=== PATIENT | male | born 1995 | race Hispanic/Latino ===

== ENCOUNTER 2017-09-28 20:29 | Inpatient (IN) | payer BC, MEDICAID, OTHER ==
[~2017-09-28] VITALS: Ht 162.6 cm; Wt 57.6 kg
[2017-09-28 21:19] LABS: ABG HCO3 46.8 mmol/L (21.0-28.0); ABG OXYGEN SATURATION 55.7 % (95.0-99.0); ABG PCO2 97 mmHg (35-48)
[2017-09-28 21:19] LABS: EOSINOPHILS % (AUTO) 0.1 % (0.0-8.0); HEMATOCRIT 45.8 % (42-54); LYMPHOCYTES % (AUTO) 2.1 % (21.0-51.0); MEAN CORPUSCULAR HGB CONC 31.8 g/dL (32.0-36.0); MEAN CORPUSCULAR VOLUME 88.3 fL (80-100); MONOCYTES % (AUTO) 3.4 % (3.0-13.0); NEUTROPHILS % (AUTO) 93.4 % (40.0-77.0); PLATELET COUNT (AUTO) 362 K/uL (130-400); RED BLOOD CELL COUNT(AUTO) 5.18 MIL/uL (4.50-6.20); RED CELL DISTRIBUTION WIDTH 13.9 % (11.0-15.5); WHITE BLOOD COUNT (AUTO) 21.5 K/uL (4.8-10.8)
[2017-09-28] MEDS ORDERED: IPRATROPIUM/ALBUTEROL SULFATE 3 ML SOLUTION IH ONE (21:24)
[2017-09-28 21:43] LABS: CREATINE KINASE MB < 0.5 ng/mL (0.5-3.6); CREATINE KINASE, TOTAL 60 U/L (21-232)
[2017-09-28 21:47] LABS: CREATININE 0.7 mg/dL (0.5-1.5); POTASSIUM 4.3 mmol/L (3.5-5.1)
[2017-09-28 21:48] LABS: ABG BASE EXCESS 13.9 mmol/L (-2.0-3.0); ABG HCO3 46.6 mmol/L (21.0-28.0); ABG PCO2 107 mmHg (35-48)
[2017-09-28] MEDS ORDERED: NITROGLYCERIN 1GM/1 INCH PACKET TD ONE (21:51)
[2017-09-28] MEDS ORDERED: ASPIRIN 325 MG TABLET ONE (21:51)
[2017-09-28 21:52] LABS: ALBUMIN 3.3 g/dL (3.5-5.0); BILIRUBIN,TOTAL 0.4 mg/dL (0.2-1.0); TOTAL PROTEIN, SERUM 8.7 g/dL (6.0-8.3)
[2017-09-28] MEDS ORDERED: ACETAMINOPHEN 325 MG TAB PO PRN (23:15)
[2017-09-28] MEDS ORDERED: NITROGLYCERIN 0.4 MG SL TAB SL PRN (23:15)
[2017-09-28] MEDS ORDERED: ZOSYN 3.375GM+NS 50ML 50 ML IV SCH (23:15)
[2017-09-28] MEDS ORDERED: ONDANSETRON HCL 4 MG/2 ML VIAL IV PRN (23:15)
[2017-09-28] MEDS ORDERED: METOPROLOL TARTRATE 1 MG/ML 5ML VIAL IV PRN (23:15)
[2017-09-28 23:33] LABS: APPEARANCE,URINE Clear (CLEAR); BILIRUBIN,URINE Negative (NEGATIVE); COLOR,URINE Yellow (YELLOW); GLUCOSE, URINE (UA) Negative (NEGATIVE); KETONES,URINE Negative (NEGATIVE); LEUKOCYTE ESTERASE ,URINE Negative (NEGATIVE); NITRATE,URINE Negative (NEGATIVE); OCCULT BLOOD,URINE Nonhemolyzed Trace (NEGATIVE); PROTEIN,URINE >=1000 (NEGATIVE)
[2017-09-28 23:41] LABS: AMPHET/METH SCREEN,URINE NEGATIVE (NEGATIVE); BARBITURATE SCREEN, URINE NEGATIVE (NEGATIVE); BENZODIAZEPINES SCREEN,URINE NEGATIVE (NEGATIVE); CANNABINOID SCREEN,URINE NEGATIVE (NEGATIVE); COCAINE SCREEN,URINE NEGATIVE (NEGATIVE); OPIATE SCREEN,URINE NEGATIVE (NEGATIVE); PHENCYCLIDINE SCREEN,URINE NEGATIVE (NEGATIVE)
[2017-09-29] LABS: BACTERIA,URINE None Seen /HPF (None Seen); MUCUS,URINE Moderate LPF (None Seen); RBC,URINE 0-1 /HPF (0-1); SQUAMOUS EPITHELIAL CELL,UR Moderate /LPF (0-2); WBC,URINE 0-1 /HPF (0-1); YEAST,URINE BUDDING Rare /HPF (None Seen)
[2017-09-29] MEDS ORDERED: METOPROLOL TARTRATE 1 MG/ML 5ML VIAL IV ONE (00:13)
[2017-09-29 01:23] LABS: ABG BASE EXCESS 14.2 mmol/L (-2.0-3.0); ABG HCO3 41.1 mmol/L (21.0-28.0); ABG OXYGEN SATURATION 89.7 % (95.0-99.0); ABG PCO2 60 mmHg (35-48)
[2017-09-29] MEDS ORDERED: MEROPENEM 1 GM VIAL ONE ×2 (01:50→09:13)
[2017-09-29] MEDS ORDERED: ACETAMINOPHEN 325 MG TAB ONE (03:33)
[2017-09-29 03:48] LABS: HEMATOCRIT 39.3 % (42-54); MEAN CORPUSCULAR HEMOGLOBIN 28.1 pg (27.0-33.0); PLATELET COUNT (AUTO) 321 K/uL (130-400); RED BLOOD CELL COUNT(AUTO) 4.46 MIL/uL (4.50-6.20); RED CELL DISTRIBUTION WIDTH 14.1 % (11.0-15.5); WHITE BLOOD COUNT (AUTO) 21.3 K/uL (4.8-10.8)
[2017-09-29 03:57] LABS: CARBON DIOXIDE 42 mmol/L (21-32); CHLORIDE 99 mmol/L (101-111); CREATININE 0.7 mg/dL (0.5-1.5); GLOMERULAR FILTR. RATE CALC 153 mL/min (>60); GLUCOSE,RANDOM 122 mg/dL (70-105); POTASSIUM 3.9 mmol/L (3.5-5.1); SODIUM SERUM 140 mmol/L (136-145); UREA NITROGEN, BLOOD 19 mg/dL (7-18)
[2017-09-29 04:11] LABS: CHOLESTEROL 83 mg/dL (<200); CREATINE KINASE MB < 0.5 ng/mL (0.5-3.6); CREATINE KINASE, TOTAL 15 U/L (21-232); HDL CHOLESTEROL 53 mg/dL (29-71); LDL DIRECT 28 mg/dL (0-99); MYOGLOBIN 19 ng/mL (10-92); TRIGLYCERIDES 31 mg/dL (30-200); TROPONIN I 0.13 ng/mL (0.00-0.06)
[2017-09-29] MEDS: ASPIRIN 81MG TAB.CHEW PO SCH (09:00)
[2017-09-29] MEDS: FAMOTIDINE/PF 20 MG/2 ML VIAL IV SCH ×2 (09:00→20:18)
[2017-09-29] MEDS: SODIUM CHLORIDE 0.9% 1000ML 1,000 ML IV SCH ×2 (09:13→18:22)
[2017-09-29] MEDS ORDERED: ASPIRIN 81MG TAB.CHEW ONE (09:13)
[2017-09-29] MEDS ORDERED: FAMOTIDINE/PF 20 MG/2 ML VIAL IV ONE (09:14)
[2017-09-29 11:16] LABS: CREATINE KINASE MB 0.5 ng/mL (0.5-3.6); TROPONIN I 0.13 ng/mL (0.00-0.06)
[2017-09-29 11:50] VITALS: BP 156/94
[2017-09-29 16:09] VITALS: BP 131/79
[2017-09-29] MEDS: FLU VACC QS2017-18 36MOS UP/PF 60 MCG/0.5 ML ML IM SCH (16:45)
[2017-09-29] MEDS: MEROPENEM 1 GM VIAL IVP SCH (18:22)
[2017-09-29 19:35] VITALS: BP 91/41
[2017-09-29 23:49] VITALS: BP 147/98
[2017-09-30] MEDS: MEROPENEM 1 GM VIAL IVP SCH ×3 (01:59→17:27)
[2017-09-30 03:56] VITALS: BP 116/70
[2017-09-30] MEDS: SODIUM CHLORIDE 0.9% 1000ML 1,000 ML IV SCH ×2 (04:48→15:46)
[2017-09-30 07:00] VITALS: BP 152/94
[2017-09-30] MEDS: ASPIRIN 81MG TAB.CHEW PO SCH (08:37)
[2017-09-30] MEDS: FAMOTIDINE/PF 20 MG/2 ML VIAL IV SCH ×2 (08:37→21:02)
[2017-09-30] MEDS: HYDRALAZINE HCL 20 MG/ML VIAL IV PRN (10:35)
[2017-09-30 11:00] VITALS: BP 141/85
[2017-09-30 16:00] VITALS: BP 150/96
[2017-09-30 20:29] VITALS: BP 91/54
[2017-10-01] VITALS (8 sets, daily range): BP systolic 104–198; BP diastolic 39–119
[2017-10-01] MEDS: SODIUM CHLORIDE 0.9% 1000ML 1,000 ML IV SCH ×4 (01:16→23:37)
[2017-10-01] MEDS: MEROPENEM 1 GM VIAL IVP SCH ×3 (01:17→17:52)
[2017-10-01] MEDS: ASPIRIN 81MG TAB.CHEW PO SCH (08:35)
[2017-10-01] MEDS ORDERED: FAMOTIDINE 20MG TAB 20 MG TAB PO SCH (09:00)
[2017-10-01 16:18] LABS: HEMATOCRIT 41.3 % (42-54); MEAN CORPUSCULAR HEMOGLOBIN 28.4 pg (27.0-33.0); MEAN CORPUSCULAR HGB CONC 32.9 g/dL (32.0-36.0); MEAN CORPUSCULAR VOLUME 86.2 fL (80-100); PLATELET COUNT (AUTO) 370 K/uL (130-400); RED BLOOD CELL COUNT(AUTO) 4.79 MIL/uL (4.50-6.20); RED CELL DISTRIBUTION WIDTH 13.9 % (11.0-15.5); WHITE BLOOD COUNT (AUTO) 15.4 K/uL (4.8-10.8)
[2017-10-01 17:01] LABS: BAND NEUTROPHILS % (MANUAL) 9 % (0-2); EOSINOPHILS % (MANUAL) 3 % (1-6); LYMPHOCYTES % (MANUAL) 13 % (22-44); MAN.DIFF COMMENT-IMPRESSION MANUAL DIFFERENTIAL; REACTIVE LYMPHOCYTES 1 % (0-0); SEGMENTED NEUTROPHILS % 74 % (40-70)
[2017-10-01 17:04] LABS: PLATELET MORPHOLOGY COMMENT LARGE PLTS PRESENT
[2017-10-01] MEDS: HYDRALAZINE HCL 20 MG/ML VIAL IV PRN (19:53)
[2017-10-01] MEDS: FAMOTIDINE/PF 20 MG/2 ML VIAL IV SCH (19:54)
[2017-10-02] VITALS (7 sets, daily range): BP systolic 90–177; BP diastolic 45–108
[2017-10-02] MEDS: MEROPENEM 1 GM VIAL IVP SCH ×3 (01:52→18:24)
[2017-10-02] MEDS: HYDRALAZINE HCL 20 MG/ML VIAL IV PRN (03:16)
[2017-10-02] MEDS: ASPIRIN 81MG TAB.CHEW PO SCH (09:00)
[2017-10-02] MEDS: ENOXAPARIN SODIUM 40 MG/0.4 ML SYRINGE SQ SCH (09:21)
[2017-10-02] MEDS: FAMOTIDINE/PF 20 MG/2 ML VIAL IV SCH ×2 (09:49→21:05)
[2017-10-02] MEDS: SODIUM CHLORIDE 0.9% 1000ML 1,000 ML IV SCH ×2 (10:02→21:06)
[2017-10-03] MEDS: HYDRALAZINE HCL 20 MG/ML VIAL IV PRN (00:36)
[2017-10-03] MEDS: MEROPENEM 1 GM VIAL IVP SCH ×3 (01:56→16:57)
[2017-10-03 03:48] VITALS: BP 137/83
[2017-10-03 04:03] LABS: HEMATOCRIT 41.2 % (42-54); MEAN CORPUSCULAR HEMOGLOBIN 28.5 pg (27.0-33.0); MEAN CORPUSCULAR VOLUME 86.3 fL (80-100); PLATELET COUNT (AUTO) 384 K/uL (130-400); RED BLOOD CELL COUNT(AUTO) 4.77 MIL/uL (4.50-6.20); RED CELL DISTRIBUTION WIDTH 14.2 % (11.0-15.5); WHITE BLOOD COUNT (AUTO) 18.5 K/uL (4.8-10.8)
[2017-10-03 04:11] LABS: ALBUMIN 2.9 g/dL (3.5-5.0); BILIRUBIN,TOTAL 0.4 mg/dL (0.2-1.0); CREATININE 0.6 mg/dL (0.5-1.5); POTASSIUM 3.5 mmol/L (3.5-5.1); TOTAL PROTEIN, SERUM 8.1 g/dL (6.0-8.3)
[2017-10-03 07:23] VITALS: BP_SYST 158; BP_DIAS 110; BP_DIAS 98
[2017-10-03] MEDS: ASPIRIN 81MG TAB.CHEW PO SCH (09:20)
[2017-10-03] MEDS: FAMOTIDINE/PF 20 MG/2 ML VIAL IV SCH ×2 (09:20→20:47)
[2017-10-03] MEDS: ENOXAPARIN SODIUM 40 MG/0.4 ML SYRINGE SQ SCH (09:21)
[2017-10-03 11:20] VITALS: BP 148/80
[2017-10-03] MEDS: SODIUM CHLORIDE 0.9% 1000ML 1,000 ML IV SCH ×2 (13:13→23:59)
[2017-10-03 16:15] VITALS: BP 152/98
[2017-10-03] MEDS ORDERED: LIDOCAINE HCL-MPF 1% 2ML VIAL IVP PRN (16:30)
[2017-10-03] MEDS ORDERED: POTASSIUM CHLORIDE 20 MEQ ERTAB PO PRN (16:30)
[2017-10-03] MEDS ORDERED: POTASSIUM CHLORIDE 20MEQ/100ML 100 ML IV PRN (16:30)
[2017-10-03] MEDS: POTASSIUM CHLORIDE 10% ELIXIR 20 MEQ/15 ML UDCUP PO PRN ×2 (16:54→18:44)
[2017-10-03 19:28] VITALS: BP 169/97
[2017-10-03 23:15] VITALS: BP 108/61
[2017-10-04] MEDS: MEROPENEM 1 GM VIAL IVP SCH ×3 (02:05→21:06)
[2017-10-04] MEDS: IPRATROPIUM/ALBUTEROL SULFATE 3 ML SOLUTION IH SCH ×6 (02:43→22:05)
[2017-10-04 04:02] VITALS: BP 111/72
[2017-10-04 08:00] VITALS: BP 148/85
[2017-10-04] MEDS: ASPIRIN 81MG TAB.CHEW PO SCH (10:09)
[2017-10-04] MEDS: FAMOTIDINE/PF 20 MG/2 ML VIAL IV SCH ×2 (10:09→21:04)
[2017-10-04] MEDS: SODIUM CHLORIDE 0.9% 1000ML 1,000 ML IV SCH ×2 (10:12→19:18)
[2017-10-04 11:09] VITALS: BP 157/90
[2017-10-04 12:24] LABS: ABG BASE EXCESS 6.5 mmol/L (-2.0-3.0); ABG HCO3 33.1 mmol/L (21.0-28.0); ABG OXYGEN SATURATION 98.3 % (95.0-99.0); ABG PCO2 55 mmHg (35-48)
[2017-10-04] MEDS ORDERED: MEROPENEM 1GM IVPB PREMIXED 1 GM IV SCH (14:00)
[2017-10-04 16:10] VITALS: BP 158/102
[2017-10-04] MEDS: FLU VACC QS2017-18 36MOS UP/PF 60 MCG/0.5 ML ML IM SCH (16:24)
[2017-10-04] MEDS: ENOXAPARIN SODIUM 40 MG/0.4 ML SYRINGE SQ SCH (16:24)
[2017-10-04 19:35] VITALS: BP 136/81
[2017-10-04 23:53] VITALS: BP 94/44
[2017-10-05] VITALS (25 sets, daily range): BP systolic 72–189; BP diastolic 37–119
[2017-10-05] MEDS: IPRATROPIUM/ALBUTEROL SULFATE 3 ML SOLUTION IH SCH ×6 (02:13→22:10)
[2017-10-05] MEDS: ENOXAPARIN SODIUM 40 MG/0.4 ML SYRINGE SQ SCH (02:32)
[2017-10-05] MEDS: ASPIRIN 81MG TAB.CHEW PO SCH (02:35)
[2017-10-05 03:55] LABS: HEMATOCRIT 40.6 % (42-54); MEAN CORPUSCULAR HEMOGLOBIN 28.4 pg (27.0-33.0); MEAN CORPUSCULAR HGB CONC 32.9 g/dL (32.0-36.0); MEAN CORPUSCULAR VOLUME 86.4 fL (80-100); PLATELET COUNT (AUTO) 325 K/uL (130-400); RED CELL DISTRIBUTION WIDTH 14.2 % (11.0-15.5); WHITE BLOOD COUNT (AUTO) 13.8 K/uL (4.8-10.8)
[2017-10-05 04:14] LABS: ALBUMIN 2.9 g/dL (3.5-5.0); BILIRUBIN,TOTAL 0.5 mg/dL (0.2-1.0); CREATININE 0.8 mg/dL (0.5-1.5); POTASSIUM 4.1 mmol/L (3.5-5.1); TOTAL PROTEIN, SERUM 7.8 g/dL (6.0-8.3)
[2017-10-05] MEDS: MEROPENEM 1 GM VIAL IVP SCH (05:21)
[2017-10-05] MEDS: SODIUM CHLORIDE 0.9% 1000ML 1,000 ML IV SCH (05:22)
[2017-10-05] MEDS: FAMOTIDINE 20MG TAB 20 MG TAB PO SCH ×2 (09:00→20:41)
[2017-10-05] MEDS ORDERED: LEVOFLOXACIN 500 MG TABLET PO SCH (09:00)
[2017-10-05] MEDS ORDERED: PROPOFOL 10 MG/ML 20ML VIAL IV ONE (13:31)
[2017-10-05] MEDS ORDERED: LABETALOL HCL 5 MG/ML 20ML VIAL IV ONE (14:40)
[2017-10-05] MEDS: FLU VACC QS2017-18 36MOS UP/PF 60 MCG/0.5 ML ML IM SCH (16:45)
[2017-10-05] MEDS: LEVOFLOXACIN 500 MG TABLET PO SCH (20:41)
[2017-10-06] MEDS: IPRATROPIUM/ALBUTEROL SULFATE 3 ML SOLUTION IH SCH ×4 (01:38→13:51)
[2017-10-06 03:26] VITALS: BP 133/94
[2017-10-06 07:37] VITALS: BP 146/98
[2017-10-06] MEDS: LEVOFLOXACIN 500 MG TABLET PO SCH (08:51)
[2017-10-06] MEDS: FAMOTIDINE 20MG TAB 20 MG TAB PO SCH (08:51)
[2017-10-06] MEDS: ASPIRIN 81MG TAB.CHEW PO SCH (08:51)
[2017-10-06] MEDS: ENOXAPARIN SODIUM 40 MG/0.4 ML SYRINGE SQ SCH ×2 (08:52→09:00)
[2017-10-06 12:09] VITALS: BP 146/106
[2017-10-06] MEDS ORDERED: FAMO40OR2 PO (14:08)
[2017-10-06] MEDS ORDERED: LEVO500T2 PO (14:08)
[2017-10-06 16:00] VITALS: BP 157/104
== END 2017-10-06 18:20 | disposition home or self-care (01) | DRG 871 ==
LOC: EDH 20:29 → EDHIP 20:30 → 2AH 09-29 11:12
PROVIDERS: ADMIT Family Medicine; ATTEND Family Medicine
PROC: 5A09357 Assistance with Respiratory Ventilation, Less than 24 Consecutive Hours, Continuous Positive Airway Pressure (ICD-10-PCS; principal; 2017-09-29)
PROC: 5A09357 Assistance with Respiratory Ventilation, Less than 24 Consecutive Hours, Continuous Positive Airway Pressure (ICD-10-PCS; 2017-09-30)
PROC: 5A09357 Assistance with Respiratory Ventilation, Less than 24 Consecutive Hours, Continuous Positive Airway Pressure (ICD-10-PCS; 2017-10-01)
PROC: 0DH673Z Insertion of Infusion Device into Stomach, Via Natural or Artificial Opening (ICD-10-PCS; 2017-10-01)
PROC: 5A09357 Assistance with Respiratory Ventilation, Less than 24 Consecutive Hours, Continuous Positive Airway Pressure (ICD-10-PCS; 2017-10-02)
PROC: 5A09357 Assistance with Respiratory Ventilation, Less than 24 Consecutive Hours, Continuous Positive Airway Pressure (ICD-10-PCS; 2017-10-02)
PROC: 5A09357 Assistance with Respiratory Ventilation, Less than 24 Consecutive Hours, Continuous Positive Airway Pressure (ICD-10-PCS; 2017-10-03)
PROC: 5A09357 Assistance with Respiratory Ventilation, Less than 24 Consecutive Hours, Continuous Positive Airway Pressure (ICD-10-PCS; 2017-10-04)
PROC: 5A09357 Assistance with Respiratory Ventilation, Less than 24 Consecutive Hours, Continuous Positive Airway Pressure (ICD-10-PCS; 2017-10-05)
DX: A41.9 Sepsis, unspecified organism (principal); J96.21 Acute and chronic respiratory failure with hypoxia; J18.9 Pneumonia, unspecified organism; J96.22 Acute and chronic respiratory failure with hypercapnia; R13.12 Dysphagia, oropharyngeal phase; G70.9 Myoneural disorder, unspecified; H49.9 Unspecified paralytic strabismus; Z79.82 Long term (current) use of aspirin; Z93.1 Gastrostomy status; Z82.49 Family history of ischemic heart disease and other diseases of the circulatory system
CPT/HCPCS: 36415; 36600; 70450; 71045; 74018; 74230; 80048; 80053; 80061; 80305; 81001; 82330; 82435; 82550; 82553; 82803; 82947; 83605; 83735; 83874; 83880; 84132; 84295; 84484; 85018; 85025; 85027; 87040; 87633; 92610; 92611; 93005; 93306; 94150; 94640; 94660; 94664; 99291; A4218; J0360; J1650; J2185; J2405; J2704; J3490; J7030